=== PATIENT | male | born 1995 | race Caucasian/White ===

== ENCOUNTER 2025-01-12 06:22 | Emergency (ER) | payer OTHER, SELFPAY ==
[2025-01-12 06:25] VITALS: BMI 23.7
[2025-01-12 06:27] VITALS: BP 129/95; PULSE 73; RESP 17; TEMP 36.9; O2SAT 98
[2025-01-12] MEDS: ONDANSETRON INJ 2 MG/ML INJ 2 ML 4 MG IVP (06:38)
[2025-01-12] MEDS: fentaNYL CIT INJ 50 mCg/ML AMP 2ML IVP ×2 (06:38→10:50)
--- NOTE | 2025-01-12 06:40 | EDNOTE_ITS ---
Upper Extremity Injury RME/HPI General Chief Complaint: Hand/Wrist Problems Stated Complaint: RIGHT HAND INJURY Time Seen by Provider: 01/12/25 06:27 Arrival date/time: 01/12/25 06:22 RME / HPI RME / HPI narrative: DR. GARCIA MAIN ED EVALUATION: 29-year-old male with no significant past medical history presents to the Emergency Department after a work-related hand injury. 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 He sustained an avulsion of the tip and nail of the right 4th finger (not involving the nail bed) and a deformity of the right 3rd finger at the DIP joint. He denies other injuries, loss of consciousness, or head trauma. He reports an allergy to morphine, stating I pass out when given it. He takes no daily medications. Related Data Allergies Allergy/AdvReac Type Severity Reaction Status Date / Time morphine Allergy Verified 01/12/25 06:23 Review of Systems Review of Systems Systems Reviewed: All systems reviewed, normal except as documented Past Medical History Past Medical History CARDIAC: Positive Hypertension Social History SMOKING STATUS: Never smoker SUBSTANCE USE: does not use ALCOHOL: Never ED Exam Narrative Physical exam: GENERAL APPEARANCE: alert and oriented x 4, well-developed, well-nourished VITALS: All vitals were reviewed and the pulse ox is 98% on room air, which is normal according to my interpretation. HEENT: Normocephalic, atraumatic; pupils equal, round, reactive to light; EOMI; mucous membranes pink, moist; oropharynx clear NECK: Supple LUNGS: CTABL; no wheezes, no rales, no rhonchi HEART: Regular rate, regular rhythm; normal S1, S2; no murmurs ABDOMEN: non distended; normal BS; soft, no tenderness, no guarding, no rebound; no masses, no organomegaly, no hernia BACK: no CVA tenderness EXTREMITIES: Right hand avulsion injury to distal tip and nail of 4th finger, not involving nail bed, minimal bleeding; deformity at DIP joint of right 3rd finger, tender to palpation, limited ROM due to pain. The left hand and other extremities are normal, no deformities or tenderness. NEUROLOGIC: awake; alert and oriented x4; cranial nerves II-XII grossly intact; no focal sensory or motor deficits PSYCHIATRIC: appropriate mood and affect SKIN: warm, dry, normal color; no rashes Course Quality Measures none Orders Category Date Time Status Referral - Prime Minister Stat Cons 01/12/25 09:17 Active XR finger RT min 2V Stat Exams 01/12/25 07:17 Completed CBC Stat Lab 01/12/25 07:06 Completed CMP [Comprehensive Metabolic Panel] Stat Lab 01/12/25 07:06 Completed HYDROcodone*/APAP 5/325 [[place] 5/325] Med 01/12/25 13:19 Discontinued 1 tab PO X1 ONE Ketorolac Inj [Toradol Inj] Med 01/12/25 08:39 Discontinued 15 mg IVP X1 ONE Lidocaine 1% 20 ml [Xylocaine 1% 20 ML] Med 01/12/25 06:28 Discontinued 20 ml INFL X1 ONE Lidocaine 1% 20 ml [Xylocaine 1% 20 ML] Med 01/12/25 09:54 Discontinued 20 ml INFL X1 ONE Ondansetron Inj [Zofran Inj] Med 01/12/25 06:27 Discontinued 4 mg IVP X1 ONE ceFAZolin/D5W 1 GM IVPB [Ancef Ivpb] Med 01/12/25 06:29 Discontinued 1 gm in 50 ml IV X1 fentaNYL INJ [Sublimaze Inj] Med 01/12/25 06:27 Discontinued 50 mcg IVP X1 ONE fentaNYL INJ [Sublimaze Inj] Med 01/12/25 10:46 Discontinued 50 mcg IVP X1 ONE Vital Signs Vital signs: Vital Signs Temperature 98.4 F 01/12/25 06:27 Pulse Rate 73 01/12/25 06:27 Respiratory Rate 17 01/12/25 06:27 Blood Pressure 129/95 H 01/12/25 06:27 Pulse Oximetry (%) 98 01/12/25 06:27 Oxygen Delivery Method Room Air 01/12/25 06:27 Extremity Injury MDM Narrative MDM Narrative:: INesha am scribing for and in the presence of Dr. Garcia. Patient data External records reviewed:: None (no previous visits) Clinical information provided by:: patient Social determinants that could affect healthcare access:: none Patient has the following chronic illnesses:: Denies any PMHx, surgeries, daily medications, or known allergies. How is presenting disease/condition affected by chronic disease/condition?: no chronic disease Evaluation data The following diagnostics were reviewed and interpreted by me:: lab results and radiology exam(s) Lab and/or radiology exams considered but not ordered:: none Interpretation Summary: X-ray, my interpretation (2 views): Fracture noted in the right 3rd finger. Small avulsion fracture of the distal phalanx of the right 4th finger. Right 1st finger shows no fracture or dislocation. Soft tissue avulsion is also present in the right 4th finger. Full Report: Procedure(s): XR finger RT min 2V Accession Number(s): [id number] cc: Dennis Villagran MD; NO PRIMARY/FAMILY,PHYSICIAN; Marianna Garcia MD~ Examination: Fingers, right hand 3 views Technique: AP, oblique, lateral views fingers right hand 3 views. Exam date and time: January 12, 2025, 0749 hours FINDINGS: Fracture with displacement midportion distal phalanx third digit Amputation deformity ungual tuft tip distal phalanx fourth digit First digit does not exhibit definite fracture No foreign body IMPRESSION: Displaced fracture distal phalanx third digit. Amputation deformity ungual tuft tip distal phalanx fourth digit Dictated By: Dennis Villagran MD Medications / Prescriptions Medications or Prescriptions considered but not ordered:: none Medication administrations:: Medication Administration History Discontinued Medications Hydrocodone Bitart/Acetaminophen (Hydrocodone/Apap 5/325 Tablet) 1 tab PO X1 ONE Stop: 01/12/25 13:20 Last Admin: 01/12/25 13:26 Dose: 1 tab Documented By: SHRUTHI Fentanyl Citrate (Fentanyl Cit Inj 50 Mcg/Ml Amp 2ml) 50 mcg IVP X1 ONE Stop: 01/12/25 06:28 Last Admin: 01/12/25 06:38 Dose: 50 mcg Documented By: TYRELL Fentanyl Citrate (Fentanyl Cit Inj 50 Mcg/Ml Amp 2ml) 50 mcg IVP X1 ONE Stop: 01/12/25 10:47 Last Admin: 01/12/25 10:50 Dose: 50 mcg Documented By: SHRUTHI Cefazolin Sodium/Dextrose (Ancef Ivpb) 1 gm in 50 mls @ 100 mls/hr IV X1 ONE Stop: 01/12/25 06:58 Last Infusion: 01/12/25 07:16 Dose: Infused Documented By: Admin: 01/12/25 06:46 Dose: 100 mls/hr Documented By: TYRELL Ketorolac Tromethamine (Ketorolac Inj 30 Mg/Ml Vial) 15 mg IVP X1 ONE Stop: 01/12/25 08:40 Last Admin: 01/12/25 08:47 Dose: 15 mg Documented By: SHRUTHI Lidocaine HCl (Lidocaine Hcl 1% 20 Ml Vial) 20 ml INFL X1 ONE Stop: 01/12/25 06:29 Last Admin: 01/12/25 06:46 Dose: 20 ml Documented By: TYRELL Lidocaine HCl (Lidocaine Hcl 1% 20 Ml Vial) 20 ml INFL X1 ONE Stop: 01/12/25 09:55 Last Admin: 01/12/25 10:37 Dose: Not Given Documented By: DO Non-Admin Reason: Duplicate Medication on eMAR Ondansetron HCl (Ondansetron Inj 2 Mg/Ml Inj 2 Ml) 4 mg IVP X1 ONE; Protocol Stop: 01/12/25 06:28 Last Admin: 01/12/25 06:38 Dose: 4 mg Documented By: TYRELL see above Consultations Consultation(s) initiated? (list below): Yes Consultation #1 (Physician, Specialty, Details): Discussed test HPI, PMHx, lab, radiology results and/or management with Miranda from [facility] for possible transfer. Time: 10:00 Consultation #2 (Physician, Specialty, Details): Discussed test HPI, PMHx, lab, radiology results and/or management with Dr. Crowley from [facility], accepts the patient for transfer. Time: 13:00 Diagnosis Upper Extremity Injury Differential Diagnosis: other (Right 4th finger avulsion injury, right 3rd finger fracture or dislocation, and crush injury.) Most likely diagnosis given after review of the tests above:: See below under clinical impression Admission Indicated Admission indicated?: not indicated Explain why admission is indicated or not indicated:: Patient needs higher level of care and will be transferred. Admission Request Was there a request for admission?: No Disposition Plan Disposition Plan: Transfer Discharge Plan Plan Patient Disposition: [facility] Facility Pt Being Transferred to: [facility] Service Needed for Transfer: Orthopedics Prescriptions/Referrals Referrals: No Primary/Family,Physician [Primary Care Provider] - In 1 week Problem List Clinical Impression: Finger fracture, Open finger fracture, Avulsion fracture of distal phalanx of finger Patient/Caregiver Discharge Instructions Print Language: Turkmen Stand Alone Forms: Luzma Award Info., Patient Portal Info Letter
[2025-01-12] MEDS: LIDOCAINE HCL 1% 20 ML VIAL INFL (06:46)
[2025-01-12] MEDS: ceFAZolin/D5W 1 GM IVPB 1 GM/50 ML BAG IV (06:46)
--- NOTE | 2025-01-12 07:17 | XR_ITS ---
Examination: Fingers, right hand 3 views Technique: AP, oblique, lateral views fingers right hand 3 views. Exam date and time: January 12, 2025, 0749 hours FINDINGS: Fracture with displacement midportion distal phalanx third digit Amputation deformity ungual tuft tip distal phalanx fourth digit First digit does not exhibit definite fracture No foreign body IMPRESSION: Displaced fracture distal phalanx third digit. Amputation deformity ungual tuft tip distal phalanx fourth digit
[2025-01-12 07:25] LABS: Basophils # (Auto) 0.1 Thou/mm3 (0.0-0.2); Basophils % (Auto) 1 % (0-2.5); Eosinophils # (Auto) 0.2 Thou/mm3 (0.0-0.5); Eosinophils % (Auto) 2 % (0-10); Hematocrit 44.0 % (41.0-53.0); Hemoglobin 14.9 g/dL (13.5-16.0); Immature Granulocytes Auto 0.02 Thou/mm3 (0.00-0.00); Lymphocytes # (Auto) 3.8 Thou/mm3 (1.0-4.8); Lymphocytes % (Auto) 45 % (10-50); Mean Corpuscular HGB Conc 33.9 g/dl (31.0-37.0); Mean Corpuscular Hemoglobin 28.4 pg (25.0-35.0); Mean Corpuscular Volume 84 fL (80-100); Monocytes # (Auto) 0.9 Thou/mm3 (0.0-0.8); Monocytes % (Auto) 11 % (0-12); Neutrophils # (Auto) 3.4 Thou/mm3 (1.8-7.7); Neutrophils % (Auto) 40 % (37-80); Nucleated Red Blood Cell # 0.00 Thou/mm3 (0.00-0.00); Nucleated Red Blood Cell % 0 /100 WBC (0); Platelet Count 422 Thou/mm3 (140-440); RDW Standard Deviation 36.8 fL (35.1-43.9); Red Blood Count 5.25 Miln/mm3 (4.50-5.90); White Blood Count 8.4 Thou/mm3 (3.8-10.6)
[2025-01-12 07:40] LABS: Alanine Aminotransferase 11 U/L (10-49); Albumin, Serum 4.8 gm/dL (3.5-5.0); Albumin/Globulin Ratio 2.2 (1.2-2.2); Alkaline Phosphatase 85 U/L (46-116); Anion Gap 10 (7-16); Aspartate Amino Transferase 18 U/L (0-34); BUN/Creatinine Ratio 12 Ratio (12-20); Bilirubin,Total 0.5 mg/dL (0.3-1.2); Blood Urea Nitrogen 14 mg/dL (9-23); Calcium 9.3 mg/dL (8.3-10.6); Calcium (Corrected) 9.3 mg/dL (8.5-10.1); Carbon Dioxide 29.8 mMol/L (20.0-31.0); Chloride 104 mMol/L (98-107); Creatinine (Component) 1.2 mg/dL (0.6-1.3); Estimated Creatinine Clearance 104.7 mL/min (>60); Globulin 2.2 gm/dL (2.3-3.5); Glucose 106 mg/dL (74-106); Osmolality,Calculated 287 (275-295); Potassium 3.8 mMol/L (3.4-5.1); Sodium 144 mMol/L (136-145); Total Protein 7.0 gm/dL (5.7-8.2); eGFR > 60 See Note
--- NOTE | 2025-01-12 07:48 | PC.NURSE ---
Patient GCS 15 upon assumption of care, MD at bedside doing nerve block, antibiotics infusing. Pain managed post nerve block. Will continue with POC.
[2025-01-12] MEDS: KETOROLAC INJ 30 MG/ML VIAL 15 MG IVP (08:47)
[2025-01-12 10:00] VITALS: BP 156/96; PULSE 59; RESP 16; O2SAT 99
--- NOTE | 2025-01-12 10:03 | PC.CM ---
Addendum entered by Ana Marie RN 01/12/25 11:28: Patient has been accepted by Dr. Crowley ED to ED with Dr. Crowley. The number to call and give report is [phone]. I will make packet and CD and set up transport. Original Note: [phone] Miranda with [facility] called me back and I connected her with Dr. Garcia who presented the patient. Miranda states she will review the information that was sent and present it to her provider. 33 I contacted [facility] and I initiated a transfer. . [phone] I received a referral to transfer patient to hand surgeon.
[2025-01-12 10:29] VITALS: BP 156/96; PULSE 68; RESP 18; TEMP 36.7; O2SAT 99
[2025-01-12 12:00] VITALS: BP 138/90; PULSE 61; RESP 18; TEMP 36.7; O2SAT 98
[2025-01-12] MEDS: HYDROcodone/APAP 5/325 TABLET 1 TAB PO (13:26)
[2025-01-12 14:50] VITALS: BP 147/94; PULSE 76; RESP 18; TEMP 36.6; O2SAT 98
--- NOTE | 2025-01-12 14:53 | PC.NURSE ---
CALLED [facility] AND GAVE REPORT TO LEOLA GRIJALVA, AND I ALSO GAVE REPOR TO CHRISTINE LEDBETTER
== END 2025-01-12 14:56 | disposition short-term general hospital (02) ==
PROVIDERS: Emergency Provider Emergency Medicine
DX: S62.634A Displaced fracture of distal phalanx of right ring finger, initial encounter for closed fracture (principal)
CPT/HCPCS: 36415; 73140; 80053; 85025; 96365; 96375; 96376; 99283; J0689; J1885; J2405; J3010; J3490; A9270